=== PATIENT | male | born 1930 | race Caucasian/White ===

== ENCOUNTER 2016-08-08 09:22 | Inpatient (IN) | payer OTHER ==
[~2016-08-08] VITALS: Ht 167.6 cm; Wt 86.4 kg
[2016-08-08] VITALS (16 sets, daily range): BP systolic 68–172; BP diastolic 44–71
--- NOTE | 2016-08-08 10:35 | ED ORDER SUMMARY ---
..... Patient: JESSICA CHAPA OrderSheet [facility] VisitID: [id number] [place] [address] 85y, M Registration Date/Time: 08/08/2016 ORDER SHEET Weight: 77.1 kg (stated) Allergies: Clindamycin, Doxycycline, Oxycodone, Sulfa Antibiotics GENERAL ORDERS: Chest 1V Urgent (:08/08/2016 Henry Paris) (Ack 9:33 TBergley) (10:37 DMaziarka R.N.) Chronic Care Nurse (Continuous) (SOB) (:08/08/2016 Henry Paris) (Ack 9:33 TBergley) (9:36 DMaziarka R.N.) CBC w Diff Urgent (:08/08/2016 Henry Paris) (Ack 9:33 TBergley) (9:36 DMaziarka R.N.) CMP Urgent (:08/08/2016 Henry Paris) (Ack 9:33 TBergley) (9:36 DMaziarka R.N.) UA-Culture if indicated Urgent (:08/08/2016 Henry Paris) (Ack 9:33 TBergley) (11:23 DMaziarka R.N.) PT with INR Urgent (:08/08/2016 Henry Paris) (Ack 9:33 TBergley) (9:36 DMaziarka R.N.) Pulse oximeter (:08/08/2016 Henry Paris) (Ack 9:33 TBergley) (9:36 DMaziarka R.N.) Oxygen (2 L/min) (NC) (:08/08/2016 Henry Paris) (Ack 9:33 TBergley) (9:36 DMaziarka R.N.) Blood Culture (No) (N/A) Urgent (09:46 08/08/2016 Henry Paris) (Ack 9:49 TBergley) (9:51 DMaziarka R.N.) Lactate, Serum Urgent (09:46 08/08/2016 Henry Paris) (Ack 9:49 TBergley) (9:51 Daria R.N.) BNP Urgent (09:54 08/08/2016 Henry Paris) (Ack 10:01 TBergley) (10:37 DMabritney R.N.) Troponin-I Urgent (09:54 08/08/2016 Henry Paris) (Ack 10:01 TBergley) (10:37 DMabritney R.N.) MEDICATION ORDERS: DuoNeb Neb Tx 1 unit dose (NOW) (09:37 08/08/2016 Henry Paris) (9:51 Daria R.N.) IV FLUIDS: IV Saline Lock (09:32 08/08/2016 Henry Paris) (9:37 Daria R.N.) IV NS : initial bolus 500 mL (1000 mL/hr), then none - for X1 (NOW) (10:35 08/08/2016 Henry Paris) (10:38 DMabritney R.N.) Cefepime IV 2 gm/50mL (NOW) (10:51 08/08/2016 Henry Paris) (Ack 11:09 DMaziarksánchez R.N.) (11:23 Daria R.N.) Levaquin IV 750 mg/150 mL (NOW) (10:51 08/08/2016 Henry Paris) (11:06 DMaziarksánchez R.N.) ORDER SHEET NOTES: [Electronically signed by Jena Acevedo R.N. (15:46 08/08/2016)] [Electronically signed by Xavier Aranda Dr. (05:00 08/11/2016)] [Electronically locked/signed by Jena Acevedo R.N. (15:46 08/08/2016)]
--- NOTE | 2016-08-08 10:35 | ED NURSING NOTES ---
Clinical Report - Nurses [facility] [address] [place] [address] 08/08/2016 9:22 Patient: JESSICA CHAPA TRIAGE Triage time 09:25. Acuity: LEVEL 3. Chief Complaint: COUGH and "FLU" and (Recent Pneumonia on ABX continues SOB). ( 12 Liters per mask). --09:30 Jena Acevedo R.N. 09:25 08/08/16. BP: 127/48. HR: 54. RR: 40. O2 saturation: 94%. Temp: 99.1 F. --09:30 Jena Acevedo R.N. 09:37 08/08/16. HR: 104. O2 saturation: 90%. --09:38 Jena Acevedo R.N. Weight: 77.1 kg stated. Height/Length: 66 inches Per Patient. BMI: 27.4. --09:24 Jena Acevedo R.N. Medications Allopurinol Oral. --10:15 Jena Acevedo R.N. ALPRAZolam Oral. --10:15 Jena Acevedo R.N. Benzonatate Oral. --10:16 Jena Acevedo R.N. Cyclobenzaprine HCl Oral. --10:16 Jena Acevedo R.N. Montelukast Sodium Oral. --10:17 Jena Acevedo R.N. ProAir HFA Inhalation. --10:17 Jena Acevedo R.N. Spiriva HandiHaler Inhalation. --10:17 Jena Acevedo R.N. Telmisartan Oral. --10:17 Jena Acevedo R.N. Trospium Chloride Oral. --10:18 Jena Acevedo R.N. Verapamil HCl ER Oral. --10:18 Jena Acevedo R.N. Zolpidem Tartrate Oral. --10:18 Jena Acevedo R.N. Tramadol HCL Oral. --10:20 Jena Acevedo R.N. Micardis Oral. --10:21 Jena Acevedo R.N. NexIUM Oral. --10:22 Jena Acevedo R.N. Allergies Clindamycin. --10:18 Jena Acevedo R.N. Doxycycline. --10:18 Jena Acevedo R.N. Oxycodone. --10:19 Jena Acevedo R.N. Sulfa Antibiotics. --10:19 Jena Acevedo R.N. History Arrived by EMS. Onset. (about 3 weeks). SOCIAL HX: Occasional alcohol use. No drug use. --09:30 Jena Acevedo R.N. PROBLEMS: Myofascial Strain. Rib Fracture. Arthritis. Tetanus Status. Fall. Back Pain. Spinal Stenosis. Headache. Anemia. Immunizations. Tuberculosis. Emphysema. COPD - Chronic Obstructive Pulmonary Disease. Hypertension. Asthma. Allergic Reaction. --09:28 Jena Acevedo R.N. Hyponatremia. --10:24 Jena Acevedo R.N. ADDITIONAL SURGERIES: Appendectomy. Esophageal Dilatation. Knee Surgery. Stomach surgery. --09:28 Jena Acevedo R.N. PHYSICAL ASSESSMENT GENERAL / NEURO / PSYCH: Appears in distress. Decreased awareness. He has had weakness. RESPIRATORY: Moderate respiratory distress. The patient can speak a few words at a time. ( Rhonchi throught). --09:33 Jena Acevedo R.N. NURSING PROGRESS NOTES 09:34 08/08/16. End tidal CO2: 23mmHg. --09:35 Jena Acevedo R.N. Oxygen administered. Monitoring of patient in place. Patient gowned. Two patient identifiers checked. Call light placed in reach. Patient ready for evaluation- ED physician notified. --09:36 Jena Acevedo R.N. 09:37 08/08/2016 Site #1 started prior to arrival by EMS via IV in the left antecubital space with an 20g angiocath. --09:37 Jena Acevedo R.N. 09:41 08/08/2016 Duoneb (Ipratropium-Albuterol) Neb TX 1 unit dose given. Given by the respiratory therapist. Allergies verified and confirmed 5 rights. --09:51 Jena Acevedo R.N. EKG time: (943). EKG was ordered, performed by a tech and shown to the ED physician. --09:51 Shanel Barajas 10:26 08/08/16. BP: 117/72. HR: 120. RR: 38. O2 saturation: 92%. Pain level now 0/10. --10:27 Jena Acevedo R.N. The patient is resting quietly. RESPIRATORY: Respiratory distress present. --10:27 Jena Acevedo R.N. 10:38 08/08/2016 Started bag #1 1000 mL IV Fluids IV NS (Saline); at 1000 mL/hr over 30 minute(s) via site #1. Allergies verified and confirmed 5 rights. IV patency established. IV site checked: no pain, redness, or swelling. IV flushed thoroughly pre- and post-medication administration. --10:38 Jena Acevedo R.N. 11:03 08/08/2016 Started 750 mg of Levaquin (Levofloxacin) IVPB in bag #1 150 mL; at 100 mL/hr over 90 minute(s) via site #1 via IV pump. Allergies verified and confirmed 5 rights. IV patency established. IV site checked: no pain, redness, or swelling. IV flushed thoroughly pre- and post-medication administration. --11:06 Jena Acevedo R.N. 11:08 08/08/16. BP: 114/49. HR: 105. RR: 32. O2 saturation: 91%. Pain level now 0/10. --11:09 Jena Acevedo R.N. The patient is sleeping. Overall patient status is improved. RESPIRATORY: Respiratory distress present. Patient waiting for results and admit bed. --11:09 Jena Acevedo R.N. 11:22 08/08/2016 Site #2 started via IV in the right forearm with an 18g angiocath using 1% intra-dermal lidocaine, with aseptic technique and good blood return. Saline lock flushed with 10 mL saline. --11:22 Jena Acevedo R.N. 11:23 08/08/2016 Started 2 gm of Cefepime IVPB in bag #1 240 mL; at 480 mL/hr over 30 minute(s) via site #2 via IV pump. Allergies verified and confirmed 5 rights. IV patency established. IV site checked: no pain, redness, or swelling. IV flushed thoroughly pre- and post-medication administration. --11:23 Jena Acevedo R.N. DISPOSITION / DISCHARGE Condition at departure: improved and stable. Admitted to the Critical Care Unit (302). --11:39 Jnea Acevedo R.N. 11:38 08/08/16. BP: 114/51. HR: 110. RR: 40. O2 saturation: 93%. Pain level now 0/10. --11:39 Jena Acevedo R.N. Locked/Released at 08/08/2016 15:46 by Jena Acevedo R.N.
--- NOTE | 2016-08-08 10:35 | ED CLINICAL REPORT ---
Clinical Report - Physicians/Mid Levels [facility] [address] [place] [address] 08/08/2016 9:22 Patient: JESSICA CHAPA Arrived- By ambulance. Historian- patient and EMS personnel. HISTORY OF PRESENT ILLNESS Chief Complaint: COUGH, FEVER, CHILLS, MUSCLE ACHES and "FLU". This started past few weeks and is still present and worsening. It was abrupt in onset and has been constant but is not gone now. The illness is described as severe. The patient has had sputum production, a cough, difficulty breathing, fever and chills. He has had muscle aches. Additional history - No known contact with a sick individual. No recent travel. Similar symptoms previously: None. Recent medical care: The patient was seen recently in a clinic (told he had "the flu"). REVIEW OF SYSTEMS All systems otherwise negative, except as recorded above. PAST HISTORY See nurses notes. Medications: NexIUM Oral. Micardis Oral. Tramadol HCL Oral. Zolpidem Tartrate Oral. Verapamil HCl ER Oral. Trospium Chloride Oral. Telmisartan Oral. Spiriva HandiHaler Inhalation. ProAir HFA Inhalation. Montelukast Sodium Oral. Cyclobenzaprine HCl Oral. Benzonatate Oral. ALPRAZolam Oral. Allopurinol Oral. Allergies: Clindamycin. Doxycycline. Oxycodone. Sulfa Antibiotics. SOCIAL HISTORY Smoker- current status unknown. No alcohol use or drug use. No recent travel. Is a local resident. ADDITIONAL NOTES The nursing notes have been reviewed. PHYSICAL EXAM Vital Signs: 08/08/2016 09:37 HR: 104. O2 saturation: 90%. 08/08/2016 09:34 End tidal CO2: 23 mmHg. 08/08/2016 09:25 BP: 127/48. HR: 54. RR: 40. O2 saturation: 94%. Temp: 99.1 F. Blood pressure normal. Oxygen saturation normal. Appearance: Alert. No acute distress. Eyes: Pupils equal, round and reactive to light. Eyes normal inspection. ENT: Ears normal. Nose normal. Pharynx normal. Uvula midline. Neck: Normal inspection. Neck supple. No meningeal signs. CVS: Normal heart rate and rhythm. Heart sounds normal. Pulses normal. Respiratory: Moderate respiratory distress. Accessory muscle use. Moderate bilateral rhonchi present diffusely. Rales present. Abdomen: Soft and nontender. No organomegaly. Skin: Skin dry. Normal skin color. No rash. Normal skin turgor. Cool skin. Extremities: Extremities exhibit normal ROM. No lower extremity edema. Neuro: Oriented X 3. No alteration in mental status. No motor deficit. No sensory deficit. LABS, X-RAYS, AND EKG EKG: No acute ischemia. Narrow-complex tachycardia (108). Sinus tachycardia. First-degree atrioventricular block. Normal QRS complex. Normal axis. Normal ST and T waves, QT and QTc. The study has been interpreted contemporaneously. The study has been independently viewed by me. The EKG appears to be a good tracing. Chest X-ray: (bilateral infiltrates worse on the right than on the left. Consistent with pneumonia.). Views: PA. The X-rays were independently viewed by me and interpreted contemporaneously by me. Laboratory Tests: CBC w Diff: (GENESIS: 08/08/2016 09:44) ( MdgRcvd 08/08/2016 10:18) IP Test Result Flag Units (Reference) WHITE BLOOD COUNT 10.7 K/uL (4.5-11.5) RED BLOOD COUNT 4.18 L M/uL (4.50-5.90) HEMOGLOBIN 12.8 L gm/dL (13.5-17.5) HEMATOCRIT 39.4 L % (41.0-53.0) MEAN CELL VOLUME 94 fL (80-100) MEAN CORPUSCULAR HGB 31 pg (26-34) MEAN CORPUSCULAR HGB CONC 32 g/dL (31-37) RED CELL DISTRIBUTION WIDTH 15.5 H % (11.6-14.8) PLATELET COUNT 283 K/uL (150-400) PT with INR: (GENESIS: 08/08/2016 09:44) ( MsgRcvd 08/08/2016 10:12) Final results Test Result Flag Units (Reference) INR 0.9 (0.8-1.2) Low Intensity Therapy: INR 1.5-2.0 PT range 18.5-23.1Mod.Intensity Therapy: INR 2.0-3.0 PT range 23.1-31.5High Intensity Therapy: INR 2.5-3.5 PT range 27.4-35.5High Intensity Therapy 2: INR 3.0-4.0 PT range 31.5-39.3 BNP: (GENESIS: 08/08/2016 09:44) ( [facility] 08/08/2016 10:32) Final results Test Result Flag Units (Reference) B-TYPE NATRIURETIC PEPTIDE 360 H pg/ml (5-100) Lactate, Serum: (GENESIS: 08/08/2016 09:44) ( [facility] 08/08/2016 10:16) Final results Test Result Flag Units (Reference) LACTIC ACID 3.0 H mmol/L (0.4-2.0) CMP: (GENESIS: 08/08/2016 09:44) ( [facility] 08/08/2016 10:34) Final results Test Result Flag Units (Reference) GLUCOSE 130 H mg/dL (70-110) BUN 32 H mg/dL (7-18) CREATININE 1.7 H mg/dL (0.6-1.3) Estimated GFR 43.88 mL/min Estimated GFR- 53.18 mL/min Note: Persistent reduction over 3 months in eGFR<60 mL/min/1.73 m2 defines CKD. Patients with eGFR values>=60 mL/min/1.73 m2 may also have CKD if evidence ofpersistent proteinuria. Additional information may be foundat www.kidney.org. SODIUM 128 L mmol/L (136-145) POTASSIUM 4.8 mmol/L (3.5-5.1) CHLORIDE 93 L mmol/L (98-107) CARBON DIOXIDE 25 mmol/L (21-32) CALCIUM 8.7 mg/dL (8.5-10.1) TOTAL PROTEIN 6.6 g/dL (6.4-8.2) ALBUMIN 2.4 L g/dL (3.3-5.0) BILIRUBIN, TOTAL 0.9 mg/dL (0.0-1.0) ALKALINE PHOSPHATASE 83 U/L (46-116) AST (SGOT) 21 U/L (15-37) ALT (SGPT) 23 U/L (12-78) TROPONIN I <0.05 L ng/mL (0.00-1.5) TROPONIN REFERENCE RANGE:<0.1 NEGATIVE0.1-1.5 INDETERMINANT>1.5 POSITIVE . Pulse Oximetry: 08/08/2016 09:25 O2 saturation: 94%. (FIO2-6 liter/min nasal cannula). Interpretation: hypoxemia. PROGRESS AND PROCEDURES Course of Care: The patient is a pleasant 85-year-old male presenting for evaluation of respiratory distress. The patientis in bed and in a mild amount of distress. Lung sounds are remarkable for coarse rhonchi heard throughout. Particularly worse on the right compared to the left. Differential diagnoses at this time includescongestive heart failure exacerbationor pneumonia. Because of the patient's recent symptoms, pneumonia is more likely. Patient will be evaluated with chest x-ray as well as EKG and laboratory studies. Breathing treatment will also be provided for the patient's rhonchi for possible reactive airway type of etiology. Patient is agreeable to the treatment plan. We'll monitor closely. Patient improved significantly with medications here in the emergency department. Chest x-rays are unremarkable for consolidation is noted on the right side. Because of the extensive lung involvement as well as patient's initial presentation, feel more comfortable the patient went to the intensive care unit. Some laboratory studies are still pending at this time, patient will be monitored. Do not feel further intervention at this time is required. And the buttocks have been ordered as well as blood cultures. Lactate is noted to be elevated at 3.0. Had discussion with the patient as well as the hospitalist. Patient is to be admitted to the intensive care unit. no further recommendations made. The rest of the patient's laboratory studies are otherwise unremarkable. Patient has significant improvement while here in the emergency department. Patient is not resting in bed and in no acute distress. Respirations are nonlabored. Patient appears to be much more calm. Of note, this patient's note is being completed after the patient is been dispositioned from the emergency department. After the patient was sent to the intensive care unit, it was felt of the patient's condition is significant worsened. Concern for patient's area was brought up by the intensive care unit doctor. They called to the emergency department for further assistance with the patient's airway. I had arrived on the patient seen and noted that the patient was in severe distress. Patient is diaphoretic and. Heart is also elevated to the 150s. Blood pressure had remained normal throughout his stay here in the emergency department as well as in the intensive care unit. Because of the patient's severe respiratory distress, but felt that endotracheal intubation was indicated. The patient was intubated in intensive care unit. Please see procedure note for further details. This again was not performed in the emergency department and only performed in the intensive care. Please see progress note dated August 11 at 4:48 AM. Patient was intubated no Complications. Critical care performed (40 minutes). Time is exclusive of separately billable procedures. Time includes: direct patient care, patient reassessment, coordination of patient care, interpretation of data (laboratory data, pulse oximetry and arterial blood gases), review of patient's medical records, medical consultation, family consultation regarding treatment decisions and documentation of patient care. (Electronically signed by Xavier Aranda Dr. 08/11/2016 5:00)
--- NOTE | 2016-08-08 10:35 | ED ORDER SUMMARY ---
..... Patient: JESSICA CHAPA OrderSheet [facility] VisitID: [id number] [place] [address] 85y, M Registration Date/Time: 08/08/2016 ORDER SHEET Weight: 77.1 kg (stated) Allergies: Clindamycin, Doxycycline, Oxycodone, Sulfa Antibiotics GENERAL ORDERS: Chest 1V Urgent (:08/08/2016 Henry Paris) (Ack 9:33 TBergley) (10:37 DMaziarka R.N.) Bronc Breaker (Continuous) (SOB) (:08/08/2016 Henry Paris) (Ack 9:33 TBergley) (9:36 DMaziarka R.N.) CBC w Diff Urgent (:08/08/2016 Henry Paris) (Ack 9:33 TBergley) (9:36 DMaziarka R.N.) CMP Urgent (:08/08/2016 Henry Paris) (Ack 9:33 TBergley) (9:36 DMaziarka R.N.) UA-Culture if indicated Urgent (:08/08/2016 Henry Paris) (Ack 9:33 TBergley) (11:23 DMaziarka R.N.) PT with INR Urgent (:08/08/2016 Henry Paris) (Ack 9:33 TBergley) (9:36 DMaziarka R.N.) Pulse oximeter (:08/08/2016 Henry Paris) (Ack 9:33 TBergley) (9:36 DMaziarka R.N.) Oxygen (2 L/min) (NC) (:08/08/2016 Henry Paris) (Ack 9:33 TBergley) (9:36 DMaziarka R.N.) Blood Culture (No) (N/A) Urgent (09:46 08/08/2016 Henry Paris) (Ack 9:49 TBergley) (9:51 DMaziarka R.N.) Lactate, Serum Urgent (09:46 08/08/2016 Henry Paris) (Ack 9:49 TBergley) (9:51 Daria R.N.) BNP Urgent (09:54 08/08/2016 eHnry Paris) (Ack 10:01 TBergley) (10:37 DMabritney R.N.) Troponin-I Urgent (09:54 08/08/2016 Henry Paris) (Ack 10:01 TBergley) (10:37 DMabritney R.N.) MEDICATION ORDERS: DuoNeb Neb Tx 1 unit dose (NOW) (09:37 08/08/2016 Henry Paris) (9:51 Daria R.N.) IV FLUIDS: IV Saline Lock (09:32 08/08/2016 Henry Paris) (9:37 Daria R.N.) IV NS : initial bolus 500 mL (1000 mL/hr), then none - for X1 (NOW) (10:35 08/08/2016 Henry Paris) (10:38 DMabritney R.N.) Cefepime IV 2 gm/50mL (NOW) (10:51 08/08/2016 Henry Paris) (Ack 11:09 DMaziarksánchez R.N.) (11:23 Daria R.N.) Levaquin IV 750 mg/150 mL (NOW) (10:51 08/08/2016 Henry Paris) (11:06 DMaziarksánchez R.N.) ORDER SHEET NOTES: [Electronically signed by Jena Acevedo R.N. (15:46 08/08/2016)] [Electronically signed by Xavier Aranda Dr. (05:00 08/11/2016)] [Electronically locked/signed by Jena Acevedo R.N. (15:46 08/08/2016)]
--- NOTE | 2016-08-08 11:27 | DIAGNOSTIC IMAGING REPORT ---
PROCEDURE: XR CHEST 1 VIEW INDICATION: SOB AND COUGH TECHNIQUE: Single view chest. 1042 hours COMPARISON: 08/02/2016 from [facility] FINDINGS: Enlarged heart and ectatic thoracic aorta. No central venous congestion. Bilateral patchy alveolar opacities involving right upper lobe, bilateral patchy alveolar opacities and hazy opacity involving left lower lobe and right lung. Probably small left pleural effusion. No pneumothorax. Degeneration in both shoulders. Compression fracture visible in the lower lumbar spine. IMPRESSION: 1. Interval development of extensive bilateral alveolar opacities suggestive of infectious/inflammatory process. 2. Stable cardiomegaly. 3. Lower thoracic compression fractures.
--- NOTE | 2016-08-08 11:27 | DIAGNOSTIC IMAGING REPORT ---
PROCEDURE: XR CHEST 1 VIEW INDICATION: SOB AND COUGH TECHNIQUE: Single view chest. 1042 hours COMPARISON: 08/02/2016 from [facility] FINDINGS: Enlarged heart and ectatic thoracic aorta. No central venous congestion. Bilateral patchy alveolar opacities involving right upper lobe, bilateral patchy alveolar opacities and hazy opacity involving left lower lobe and right lung. Probably small left pleural effusion. No pneumothorax. Degeneration in both shoulders. Compression fracture visible in the lower lumbar spine. IMPRESSION: 1. Interval development of extensive bilateral alveolar opacities suggestive of infectious/inflammatory process. 2. Stable cardiomegaly. 3. Lower thoracic compression fractures.
--- NOTE | 2016-08-08 17:49 | DIAGNOSTIC IMAGING REPORT ---
PROCEDURE: XR CHEST 1 VIEW INDICATION: INTUBATION TECHNIQUE: Single view chest. 1608 hours. COMPARISON: 1042 hours FINDINGS: Endotracheal tube is in good position about 2.5 cm from the gelacio. Nasogastric tube is in place with the tip off the inferior portion of the film. Defibrillator pads overlying the central chest. Moderate cardiomegaly and aortic contour are stable. Alveolar opacities throughout the right lung, particularly right upper lobe, and in left lower lobe are fairly similar. No pneumothorax. Probable small left effusion. Stable osseous structures. IMPRESSION: 1. Adequate position of endotracheal and nasogastric tube. 2. Extensive bilateral alveolar opacities and small left effusion without change. 3. Mild cardiomegaly.
[2016-08-09] VITALS (28 sets, daily range): BP systolic 80–112; BP diastolic 42–72
--- NOTE | 2016-08-09 03:09 | HISTORY AND PHYSICAL ---
ADMITTED: 08/08/2016 CHIEF COMPLAINT: 1. Cough 2. Shortness breath 3. Chest congestion HISTORY OF PRESENT ILLNESS: The patient is an 85-year-old white male, well known to me, who presented to my office on 08/07/2015 for problems with hyponatremia and swallowing difficulties and a history of drinking mostly fluids for a week or more. He had had some general malaise and had been seen about a week earlier at the [facility] walk-in clinic at [facility]. He had had a chest x-ray done which was normal and did not really have any other findings, except the somewhat low sodium level. He did not really have major respiratory difficulties at the time. He had an oxygen saturation in the low 90s on room air. Over the weekend, he seemed to suddenly develop progressive respiratory difficulties. This morning his found him very congested and having difficulty talking and difficulty getting up and moving due to severe shortness of breath. She could not begin to transport him to the hospital and called 911. He was found to have bilateral infiltrates on chest x-ray and quite significantly low oxygen levels that were difficult to maintain except with a nonrebreather mask. He was started on cefepime and may have been given levofloxacin, though this is not clear. He was transferred to the intensive care unit for further care. MEDICAL/SURGICAL HISTORY: Past medical history is remarkable for longstanding hypertension, COPD, osteoarthritis, lumbar disk disease and both thoracic and lumbar spinal compression fractures from remote injuries. He has also had problems with prostate hypertrophy and surgery for this, and subsequently has developed urinary incontinence. He has had significant problems with gastroesophageal reflux and has had surgery for this. He also has underlying anxiety issues. He has had problems with actinic skin changes on his face with multiple basal cell carcinomas. Past surgical history is remarkable for multiple basal cell carcinoma removals from the head and neck area. He has had an appendectomy for a ruptured appendix with delayed appendectomy. He has had prostate gland surgery with a TUR and has also had removal of a right scrotal hydrocele at the same time. Other surgeries include laparoscopic left knee meniscectomy, sinus surgery, remote hemorrhoidectomy, laparoscopic Pedro fundoplication done in 2010, and esophageal dilation procedures done x2 in 2011. MEDICATIONS: Current medications include: 1. Trospium 20 mg strength 1 tablet once or twice daily to help control urine flow. 2. Tramadol -50 mg------ on rare occasions for headache pain. 3. Oxycodone 5 mg/5 mL liquid type 2.5 to 5 mL every 4-6 hours for extreme pain. 4. Zolpidem 10 mg strength 1/4 to 1/2 tablet at bedtime for help with sleeping. 5. Alprazolam 0.25 mg 1/2 to 1 tablet once or twice daily for anxiety issues. 6. Micardis (telmisartan) 80 mg strength 1 daily for blood pressure. 7. Extended release Verapamil 180 mg 1 daily for blood pressure and heart rhythm control. 8. Allopurinol 300 mg strength 1/2 tablet daily to prevent gout. 9. Nexium 20-40 mg daily for stomach acid reflux. 10. Spiriva 1 capsule once daily. 11. ProAir inhaler 2 puffs every 3-4 hours as needed for chest congestion and wheezing. 12. Vitamin D3 at 2000 units daily. 13. Vitamin B6. 14. Vitamin B12 daily. ALLERGIES: INCLUDE: 1. CLINDAMYCIN. 2. DOXYCYCLINE. 3. HYDROCODONE. 4. SULFA. 5. CELEBREX. 6. OMEPRAZOLE. SOCIAL HISTORY: Indicates the patient is . 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 He has a 60+ pack year smoking history. He stopped about 15 or 16 years ago around 1999 or 2000. He occasionally drinks small amounts of alcohol. FAMILY HISTORY: Not currently available. REVIEW OF SYSTEMS: HEENT has been okay. Respiratory: As noted above with sudden increase in bleeding difficulties today. Cardiovascular has been okay with no rapid heart rates or recent chest pain. Gastrointestinal: Remarkable for recent difficulties with swallowing and a feeling that foods and liquids will not go down very well. I had suspected that he may be developing an esophageal stricture once more and had recommended scheduling for an upper GI barium swallow. This has not been done yet. Musculoskeletal: Remarkable for chronic back pain issues, both in the thoracic and lumbar spine areas. He also has quite significant arthralgias in his hands, knees, and neck. Neurological: Remarkable for some mild difficulties with memory. Psychiatric: Remarkable for anxiety issues. Skin: Remarkable for multiple actinic areas on his face, scalp, and head area. PHYSICAL EXAMINATION: GENERAL: Reveals the patient to be on a nonrebreather mask and quite tachypneic and dyspneic. He is having difficulty speaking due to his difficulties. VITAL SIGNS: On arrival in the ICU, temperature is 102.4 degrees. Pulse is in the 130-150 range. Respiratory rate is about 30. Blood pressure is 150/70. Oxygen saturation is 84% to 90% nonrebreather mask at 15 L/min of oxygen flow. HEENT: Head is normal. Ear canals and tympanic membranes are normal. Eyes show conjugate gaze with clear conjunctivae and sclerae. Nose and throat are clear. Mouth is showing somewhat dry mucosa. NECK: Shows decreased range of motion with no adenopathy. CHEST: Reveals bilateral coarse inspiratory and expiratory rhonchi and rales. There is no pronounced severe wheezing. There is slight wheezing. CARDIAC: Heart sounds are difficult to hear clearly. S1 and S2 are normal. There is no obvious murmur or S3. ABDOMEN: Slightly distended. There is no organomegaly or mass. Bowel tones are normal. GENITALIA: Show a circumcised male. Testes are somewhat atrophic and descended. RECTAL: Exam is not done. EXTREMITIES: Show trace edema. Dorsalis pedis pulses +1 are noted, left and right. SKIN: Shows actinic changes on the facial area. LAB/IMAGING: Chest x-ray shows patchy infiltrates in the right upper lobe area and left lower lobe area with a slight effusion on the left. There does not seem to be pulmonary vascular congestion. Heart size is mildly enlarged. EKG shows a sinus tachycardia. There are no acute major EKG changes. Laboratory tests show a white blood cell count to be 10,700 with hemoglobin 12.8 , hematocrit 39.4. Pro time/INR is 0.9. Lactic acid elevated at 3.0. Sodium 128, potassium 4.8, chloride 93, CO2 32, glucose 130, creatinine 1.7, BUN 32. Troponin I is less than 0.05. SGOT is 21, SGPT is 23. BNP is 360. Arterial blood gas done shortly after arrival in the ICU shows a pH 7.41, pO2 of 59, and pCO2 of 37.6. IMPRESSION: 1. The patient is presenting with bilateral pneumonia, which has been rather rapidly developing and causing severe respiratory compromise. He has underlying chronic obstructive pulmonary disease and has a history of hypertension as well. 2. Other problems include probable esophageal stricture causing difficulty in swallowing. 3. He also has multiple spinal compression fractures and degenerative disk changes. 4. He also has osteoarthritis. 5. Problems with urinary incontinence with a history of prior prostate gland surgery. 6. Hyponatremia, possibly related to selective diet of increased fluids, especially water, due to inability to eat solid foods easily. The patient has not been on any diuretics. PLAN: The patient is admitted to the intensive care unit and has been started on cefepime, which will be continued at 2 grams every 12 hours. It is not clear whether he received levofloxacin in the emergency department. If not, this will be started at 750 mg daily with doses of both antibiotics to be reviewed by the pharmacy department in the morning. He will need to be watched carefully for deterioration of his breathing. If his pneumonia worsens, he may need to be intubated. He will be started empirically on Solu-Medrol starting with 125 mg IV every 6 hours as some literature suggests that this may be helpful even in the setting of acute pneumonias. CODE STATUS WAS DISCUSSED, AND HE DID FEEL HE WOULD WANT TO BE INTUBATED AND RESUSCITATED IF HE WAS HAVING AN ACUTE PNEUMONIA THAT WOULD LIKELY IMPROVE WITH TREATMENT. THIS WILL BE THE INITIAL PLAN. He will be maintained on IV fluids. He will have electrolytes followed. The patient's situation has been discussed with his , who agrees with present plans.
--- NOTE | 2016-08-09 06:20 | DIAGNOSTIC IMAGING REPORT ---
PROCEDURE: XR CHEST 1 VIEW INDICATION: Pneumonia, on vent. TECHNIQUE: Portable AP view 02:45 a.m. COMPARISON: Chest x-ray 08/08/2016 FINDINGS: Stable ET and NG tubes in satisfactory position. No appreciable change in the right upper lobe and left basilar alveolar infiltrates with small left pleural effusion. Stable moderate cardiomegaly. Pulmonary vascularity within normal limits. No suspicious osseous lesions. IMPRESSION: 1. Stable chest 2. Stable ET and NG tubes 3. Extensive bilateral pneumonia with small left pleural effusion 4. Cardiomegaly
[2016-08-09] MEDS ORDERED: ALLOPURINOL300 MG PO (14:16)
[2016-08-09] MEDS ORDERED: ALPRAZOLAM0.25 MG PO (14:17)
[2016-08-09] MEDS ORDERED: CLOBETASOL PRO (14:19)
[2016-08-09] MEDS ORDERED: CYCLOBENZAPRINE5 MG PO (14:20)
[2016-08-09] MEDS ORDERED: DEPO-MEDROL20 MG/ML SC (14:21)
[2016-08-09] MEDS ORDERED: EPIPEN 2-PAK0.3 MG (14:21)
[2016-08-09] MEDS ORDERED: DICLOFENAC SODI75 MG PO (14:21)
[2016-08-09] MEDS ORDERED: FLONASE AL50 MCG/ACT (14:22)
[2016-08-09] MEDS ORDERED: COUGH SYRU100 MG/5 M (14:23)
[2016-08-09] MEDS ORDERED: IBUPROFEN400 MG PO (14:24)
[2016-08-09] MEDS ORDERED: HYDROXYZINE HCL25 MG PO (14:24)
[2016-08-09] MEDS ORDERED: LIDODERM5 % TOP (14:24)
[2016-08-09] MEDS ORDERED: MONTELUKAST SOD10 MG PO (14:25)
[2016-08-09] MEDS ORDERED: LINZESS145 MCG PO (14:25)
[2016-08-09] MEDS ORDERED: OXYCODONE H5 MG/5 ML PO (14:27)
[2016-08-09] MEDS ORDERED: SPIRIVA18 MCG INH (14:32)
[2016-08-09] MEDS ORDERED: PROAIR HFA IN (14:32)
[2016-08-09] MEDS ORDERED: SYMBICORT1 AE1 IN (14:45)
[2016-08-09] MEDS ORDERED: MICARDIS80 MG PO (14:46)
[2016-08-09] MEDS ORDERED: TRAMADOL HCL50 MG PO (14:46)
[2016-08-09] MEDS ORDERED: TRIAMCINOLONE A0.11 TOP (14:47)
[2016-08-09] MEDS ORDERED: AMBIEN5 MG PO (14:48)
[2016-08-09] MEDS ORDERED: CALAN80 MG PO (14:48)
[2016-08-09] MEDS ORDERED: TROSPIUM CHLORI20 MG PO (14:48)
[2016-08-10] VITALS (24 sets, daily range): BP systolic 82–119; BP diastolic 50–96
--- NOTE | 2016-08-10 07:22 | DIAGNOSTIC IMAGING REPORT ---
PROCEDURE: XR CHEST 1 VIEW INDICATION: Intubation. Follow up pneumonia. TECHNIQUE: Portable AP view (0605 hours). COMPARISON: Compared to chest x-rays on 08/09/2016, 08/08/2016. FINDINGS: ET tube in satisfactory position. NG tube in position. Moderate worsening in severe left lower lung pneumonia. No change in moderate right mid lung pneumonia. Moderate to marked cardiomegaly. Mediastinum is normal. Thorax is unchanged. IMPRESSION: 1. Moderate worsening in severe left lower lung pneumonia. 2. No change in moderate right mid lung pneumonia. 3. Moderate to marked cardiomegaly.
[2016-08-11] VITALS (24 sets, daily range): BP systolic 100–129; BP diastolic 46–82
--- NOTE | 2016-08-11 05:01 | ED MED RECONCILIATION SUMMARY ---
Patient: JESSICA CHAPA Medication Reconciliation Report [facility] VisitID: [id number] [address] [place] [address] 85y, M Registration Date/Time: 08/08/2016 Weight: 77.1 kg Height/Length: 66 in. BMI: 27.4 ALLERGIES: Clindamycin, Doxycycline, Oxycodone, Sulfa Antibiotics The patient's Home Medications are listed below: THE FOLLOWING MEDICATIONS NEED TO BE RECONCILED: Allopurinol Oral ALPRAZolam Oral Benzonatate Oral Cyclobenzaprine HCl Oral Micardis Oral Montelukast Sodium Oral NexIUM Oral ProAir HFA Inhalation Spiriva HandiHaler Inhalation Telmisartan Oral Tramadol HCL Oral Trospium Chloride Oral Verapamil HCl ER Oral Zolpidem Tartrate Oral The source(s) of the original Home Medication information: Not obtained. The following Medications were given to the patient in the Emergency Department: Duoneb [Neb Tx] Neb TX 1 unit dose, administered: 08/08/2016 9:41:00 AM IV NS IV Fluids bolus 0, then 1000 mL/hr, administered: 08/08/2016 10:38:00 AM Levaquin [IVPB] IVPB bolus 0, then 750 mg 100 mL/hr, administered: 08/08/2016 11:03:00 AM Cefepime [IVPB] IVPB bolus 0, then 2 gm 480 mL/hr, administered: 08/08/2016 11:23:00 AM The following Medications were prescribed to the patient: None.
--- NOTE | 2016-08-11 05:01 | ED MAR SUMMARY ---
..... Medication Administration Record [facility] [address] [place] [address] Patient: JESSICA CHAPA Visit ID: [id number] 85y, M Weight: 77.1 kg Height/Length: 66 in BMI: 27.4 ALLERGIES: Sulfa Antibiotics, Oxycodone, Doxycycline, Clindamycin Given 09:41 08/08/2016 Jena Acevedo R.N. Medication Administered: DUONEB [NEB TX] (IPRATROPIUM-ALBUTEROL), Dose: 1 unit dose Neb TX. Medication Ordered: DuoNeb Neb Tx 1 unit dose (NOW). Start 10:38 08/08/2016 Jena Acevedo R.N. Medication Administered: IV NS (SALINE), Dose: IV Fluids over 30 minute(s), Rate: 1000 mL/hr, Dispensed: 1000 mL bag, Site: #1 left AC. Medication Ordered: IV NS : initial bolus 500 mL (1000 mL/hr), then none - for X1 (NOW). Start 11:03 08/08/2016 Jena Acevedo R.N. Medication Administered: LEVAQUIN [IVPB] (LEVOFLOXACIN), Dose: 750 mg IVPB over 90 minute(s), Rate: 100 mL/hr, Dispensed: 150 mL bag, Site: #1 left AC. Medication Ordered: Levaquin IV 750 mg/150 mL (NOW). Start 11:23 08/08/2016 Jena Acevedo R.N. Medication Administered: CEFEPIME [IVPB], Dose: 2 gm IVPB over 30 minute(s), Rate: 480 mL/hr, Dispensed: 240 mL bag, Site: #2 right forearm. Medication Ordered: Cefepime IV 2 gm/50mL (NOW).
--- NOTE | 2016-08-11 05:01 | ED MAR SUMMARY ---
..... Medication Administration Record [facility] [address] [place] [address] Patient: JESSICA CHAPA Visit ID: [id number] 85y, M Weight: 77.1 kg Height/Length: 66 in BMI: 27.4 ALLERGIES: Sulfa Antibiotics, Oxycodone, Doxycycline, Clindamycin Given 09:41 08/08/2016 Jena Acevedo R.N. Medication Administered: DUONEB [NEB TX] (IPRATROPIUM-ALBUTEROL), Dose: 1 unit dose Neb TX. Medication Ordered: DuoNeb Neb Tx 1 unit dose (NOW). Start 10:38 08/08/2016 Jena Acevedo R.N. Medication Administered: IV NS (SALINE), Dose: IV Fluids over 30 minute(s), Rate: 1000 mL/hr, Dispensed: 1000 mL bag, Site: #1 left AC. Medication Ordered: IV NS : initial bolus 500 mL (1000 mL/hr), then none - for X1 (NOW). Start 11:03 08/08/2016 Jena Acevedo R.N. Medication Administered: LEVAQUIN [IVPB] (LEVOFLOXACIN), Dose: 750 mg IVPB over 90 minute(s), Rate: 100 mL/hr, Dispensed: 150 mL bag, Site: #1 left AC. Medication Ordered: Levaquin IV 750 mg/150 mL (NOW). Start 11:23 08/08/2016 Jena Acevedo R.N. Medication Administered: CEFEPIME [IVPB], Dose: 2 gm IVPB over 30 minute(s), Rate: 480 mL/hr, Dispensed: 240 mL bag, Site: #2 right forearm. Medication Ordered: Cefepime IV 2 gm/50mL (NOW).
--- NOTE | 2016-08-11 05:01 | ED MED RECONCILIATION SUMMARY ---
Patient: JESSICA CHAPA Medication Reconciliation Report [facility] VisitID: [id number] [address] [place] [address] 85y, M Registration Date/Time: 08/08/2016 Weight: 77.1 kg Height/Length: 66 in. BMI: 27.4 ALLERGIES: Clindamycin, Doxycycline, Oxycodone, Sulfa Antibiotics The patient's Home Medications are listed below: THE FOLLOWING MEDICATIONS NEED TO BE RECONCILED: Allopurinol Oral ALPRAZolam Oral Benzonatate Oral Cyclobenzaprine HCl Oral Micardis Oral Montelukast Sodium Oral NexIUM Oral ProAir HFA Inhalation Spiriva HandiHaler Inhalation Telmisartan Oral Tramadol HCL Oral Trospium Chloride Oral Verapamil HCl ER Oral Zolpidem Tartrate Oral The source(s) of the original Home Medication information: Not obtained. The following Medications were given to the patient in the Emergency Department: Duoneb [Neb Tx] Neb TX 1 unit dose, administered: 08/08/2016 9:41:00 AM IV NS IV Fluids bolus 0, then 1000 mL/hr, administered: 08/08/2016 10:38:00 AM Levaquin [IVPB] IVPB bolus 0, then 750 mg 100 mL/hr, administered: 08/08/2016 11:03:00 AM Cefepime [IVPB] IVPB bolus 0, then 2 gm 480 mL/hr, administered: 08/08/2016 11:23:00 AM The following Medications were prescribed to the patient: None.
--- NOTE | 2016-08-11 07:54 | DIAGNOSTIC IMAGING REPORT ---
PROCEDURE: XR CHEST 1 VIEW INDICATION: on vent recheck pneumonia TECHNIQUE: Portable AP view 05:36 a.m. COMPARISON: Chest x-ray 08/10/2016 FINDINGS: ET and NG tubes remain in good position. Mild progression of the right upper lobe and the left basilar extensive pneumonia. Small left pleural effusion. Stable moderate cardiomegaly. No suspicious osseous lesions. IMPRESSION: 1. Mild progression of right upper lobe and left basilar extensive pneumonia 2. ET and NG tubes in satisfactory position 3. Stable cardiomegaly
--- NOTE | 2016-08-11 13:43 | DIAGNOSTIC IMAGING REPORT ---
PROCEDURE: XR CHEST 1 VIEW INDICATION: PICC LINE PLACEMENT TECHNIQUE: Portable AP view 01:24 p.m. COMPARISON: Chest x-ray 08/11/2016 at 05:36 a.m. FINDINGS: Interval placement of a left PICC line with the tip in the SVC. ET and NG tubes remain in satisfactory position. No appreciable change in the extensive right upper lobe and left basilar infiltrate with small left pleural effusion. Moderate cardiomegaly. Bony thorax is unremarkable. IMPRESSION: 1. Left PICC line in satisfactory position 2. ET and NG tubes in satisfactory position 3. Stable extensive bilateral pneumonias 4. Results called to respiratory
[2016-08-12] VITALS (23 sets, daily range): BP systolic 115–142; BP diastolic 51–70
--- NOTE | 2016-08-12 07:10 | DIAGNOSTIC IMAGING REPORT ---
PROCEDURE: XR CHEST 1 VIEW INDICATION: recheck pneumonia and ET tuber--on vent TECHNIQUE: Portable AP view 06:14 a.m. COMPARISON: Chest x-ray 08/11/2016 FINDINGS: Left subclavian PICC line, ET tube and NG tube in stable position. Mild improvement of the right upper lobe and left basilar infiltrates. New small right basilar infiltrate. Stable small left pleural effusion. Stable moderate cardiomegaly. No suspicious osseous lesions. IMPRESSION: 1. Left PICC line, ET and NG tubes in stable satisfactory position 2. Mildly improved right upper lobe and left basilar pneumonia but new small right basilar infiltrate
[2016-08-13] VITALS (26 sets, daily range): BP systolic 120–176; BP diastolic 47–86
--- NOTE | 2016-08-13 05:39 | DIAGNOSTIC IMAGING REPORT ---
PROCEDURE: XR CHEST 1 VIEW INDICATION: ventilator Tx, recheck pneumonia TECHNIQUE: Portable AP view 05:16 a.m. COMPARISON: Chest x-ray 08/12/2016. FINDINGS: Left PICC line, ET tube and NG tubes remain in satisfactory position. Continued improvement of the diffuse right upper lobe and right basilar infiltrates. No change in the extensive left lung infiltrate and small pleural effusion. Stable moderate cardiomegaly. Thorax is normal. IMPRESSION: 1. Stable left PICC line, ET and NG tubes prior 2. Improved right upper lobe and right basilar infiltrates 3. No change in extensive left lung infiltrate and small left pleural effusion.
[2016-08-14] VITALS (19 sets, daily range): BP systolic 132–174; BP diastolic 61–87
[2016-08-15] VITALS (22 sets, daily range): BP systolic 124–168; BP diastolic 56–85
--- NOTE | 2016-08-15 10:51 | DIAGNOSTIC IMAGING REPORT ---
PROCEDURE: XR CHEST 1 VIEW INDICATION: Follow up pneumonia. TECHNIQUE: Portable AP view (0600 hours). COMPARISON: Compared to chest x-ray on 08/13/2016 and . FINDINGS: ET tube has been removed. Left PIC line and NG tubes are in position. Allowing for underexposure, there is mild worsening in pulmonary vascular congestion and moderate to marked cardiomegaly superimposed on moderate to severe bilateral pneumonia (left greater than right). The rest of the chest is unchanged. IMPRESSION: 1. Interval removal of ET tube. 2. Mild worsening in cardiomegaly and pulmonary vascular congestion suggests increased fluid status or occult congestive heart failure. 3. No change in moderate to severe bilateral pneumonia (left greater right). 4. Findings discussed with Dr. Serra.
[2016-08-16] VITALS (23 sets, daily range): BP systolic 109–182; BP diastolic 45–71
--- NOTE | 2016-08-16 07:35 | DIAGNOSTIC IMAGING REPORT ---
PROCEDURE: XR CHEST 1 VIEW INDICATION: recheck pneumonia. TECHNIQUE: Single view chest. 06:07 hours COMPARISON: 08/15/2016 FINDINGS: Left-sided PICC line and nasogastric tube remain in stable position. Moderate cardiomegaly, stable. No change to the mediastinal contour. No significant central venous congestion. Stable right upper lobe alveolar opacity. Slight clearing of moderate right lower lobe opacity. Interval development of large left-sided pneumothorax. No shift of the mediastinal structures. Intact osseous structures. IMPRESSION: 1. Interval development of large left pneumothorax. 2. Very slight interval improvement in right lower lung pneumonia. 3. Stable right upper lobe pneumonia. 4. Stable tubes and lines. 5. Discussed with Dr. Serra at 07:33 hours.
--- NOTE | 2016-08-16 11:08 | DIAGNOSTIC IMAGING REPORT ---
PROCEDURE: XR CHEST 1 VIEW INDICATION: recheck pneumothorax. TECHNIQUE: Portable AP view 09:59 a.m. COMPARISON: Chest x-ray 08/16/2016 06:03 a.m. FINDINGS: Stable left PICC line and NG tube. No change in the large left pneumothorax. Stable right upper and lower lobe pneumonia. Stable moderate cardiomegaly. Mediastinum is unremarkable. Thorax is normal. IMPRESSION: 1. Stable large left pneumothorax 2. Stable right upper and lower lobe pneumonia 3. Stable NG tube and left PICC line 4. Results discussed with Dr. Serra and Dr. Worrell
--- NOTE | 2016-08-16 11:18 | Operative Report ---
Operative Report Date of Surgery: 08/16/16 Preoperate Diagnosis: left pneumothorax Postoperative Diagnosis: left pneumothorax Surgeon: En Worrell MD [employer] Manager Surgeon: none Procedure Performed: Left chest tube thoracostomy Anesthesia: Morphine 1 mg IV. Versed 2 mg IV. Local 1% Xylocaine 5 cc Indications: 85-year-old male history of pneumonia taken off the ventilator on 08/16/16. This morning's chest x-ray revealed left pneumothorax that progressed on a second chest x-ray. Surgical Technique: With the patient at 45 angle in bed his left upper chest was prepped using ChloraPrep. A site was selected approximately second intercostal space midclavicular line. This site was infiltrated using local anesthetic. A small transverse incision made. Using gentle blunt dissection we were able to enter the left pleura. A 26 Thai chest tube was inserted through this site and directed apically. The chest tube was secured using 2-0 nylon. Sterile occlusive dressing was applied. The chest tube was attached to Pleur-evac and attached to 20 cm wall suction. Patient tolerated procedure well. Portable chest x-ray pending.
--- NOTE | 2016-08-16 12:03 | DIAGNOSTIC IMAGING REPORT ---
PROCEDURE: XR CHEST 1 VIEW INDICATION: CHEST TUBE PLACED TECHNIQUE: Portable AP view 11:12 a.m. COMPARISON: Chest x-ray 08/16/2016 and 12/1958. FINDINGS: Interval placement of a large bore left chest tube projecting over the upper lung zone with tiny residual left apical pneumothorax. Stable extensive bilateral pneumonia. Moderate cardiomegaly. Left PICC line and NG tube remain in satisfactory position. Thorax is normal. IMPRESSION: 1. Interval placement of left chest tube with tiny residual left pneumothorax 2. Otherwise stable chest 3. Results discussed with Dr. Worrell
[2016-08-17] VITALS (24 sets, daily range): BP systolic 93–153; BP diastolic 36–60
--- NOTE | 2016-08-17 03:15 | Progress Note ---
Subjective General Note Date: August 17, 2016 Admission Date: August 08, 2016 Hospital Day: 10 PCP: Moses Serra M.D. Status: Inpatient Advanced Directive: FULL CODE Room: 302 Brief History: The patient is a 85-year-old white male with a significant past medical history of hypertension, COPD, osteoarthritis, lumbar disc disease, lumbar/thoracic compression fractures, BPH, gastroesophageal reflux, gout, generalized anxiety disorder, who presented to [facility] emergency department on the day of admission secondary to complaints of cough, shortness of breath, and chest congestion. Evaluation at that time was consistent with bilateral MRSA pneumonia, exacerbation of COPD, hypertension, and esophageal stricture. Secondary to the above, the patient was admitted by Mosse Serra M.D. for further evaluation and treatment. For other history present illness, past medical history, family history, social history, review of systems, and admission physical examination please see the patient's history and physical examination and ER visit note in the patient's medical record. Subjective: The patient was noted to have increasing difficulty breathing and this a.m. He had decreasing O2 saturations despite increasing O2 requirement. The patient was essentially nonresponsive to all but noxious stimuli. Patient requests: None Physical Exam Vital Signs / I&Os Vital Signs Date Time Temp Pulse Resp B/P Pulse O2 O2 Flow FiO2 Ox Delivery Rate 08/17 0310 84 21 153/55 88 13.0 Non-Rebreather Mask 08/17 0248 13.0 08/17 0200 99.1 87 29 130/36 89 13.0 Non-Rebreather Mask 08/17 0147 1.0 08/17 0100 90 34 130/48 94 11.0 Non-Rebreather Mask 08/17 0000 85 28 117/47 93 11.0 Non-Rebreather Mask 08/16 2200 98.8 86 24 123/52 93 Mask 11.0 08/16 2100 90 21 114/45 94 Mask 11.0 08/16 2004 Mask 11.0 08/16 2000 84 20 125/52 94 Mask 11.0 08/16 1925 11.0 08/16 1900 91 19 111/57 95 Mask 11.0 08/16 1800 98.8 78 24 115/48 95 Mask 11.0 08/16 1714 86 22 117/50 95 Mask 11.0 08/16 1600 98.8 82 21 110/45 91 Mask 11.0 08/16 1512 117/49 04/17 1506 108 29 94 Mask 11.0 08/16 1439 11.0 08/16 1400 83 20 142/53 97 15.0 Non-Rebreather Mask 08/16 1300 95 20 155/65 97 15.0 Non-Rebreather Mask 08/16 1200 88 31 140/64 97 15.0 Non-Rebreather Mask 08/16 1100 98.8 87 31 150/65 97 15.0 Non-Rebreather Mask 08/16 1022 100 40 85 40 Non-Rebreather Mask 08/16 1000 86 35 160/69 87 15.0 Non-Rebreather Mask 08/16 0900 97 33 160/59 90 15.0 Non-Rebreather Mask 08/16 0800 15.0 Non-Rebreather Mask 08/16 0800 107 35 182/71 90 Bipap 13.0 08/16 0740 13.0 08/16 0700 98.8 97 30 109/50 96 Bipap 8.0 08/16 0600 98.8 102 25 134/56 92 Bipap 8.0 08/16 0500 90 25 118/55 92 Bipap 40 08/16 0400 99 33 138/68 86 Bipap 40 I&O 08/17 0000 08/16 1600 08/16 0800 Intake Total 134 1399 2333 Output Total 218 252 620 Balance -84 1147 1713 General Appearance Moderate distress, lethargic Lungs Decreased air movement bilaterally, rales bases, Cardiovascular Regular rate and rhythm, Normal S1 and S2 Abdomen Normal bowel sounds, Soft, No tenderness Extremities No cyanosis, No clubbing Neurological Cranial nerves intact, No lateralizing signs, lethargic, minimally responsive Psych/Mental Status Confused, minimally responsive, no verbal interaction LAB Results Laboratory Tests 08/17 08/17 08/17 08/17 0410 0410 0400 0321 Blood Gas Sample Site RR Total CO2 (24.0 - 30.0 mmol/L) Cancelled 31.5 ABG pH (7.35 - 7.45) Cancelled 7.31 ABG pCO2 at Pt Temp (35 - 45 mmHg) Cancelled 59.8 ABG pO2 at Pt Temp (60.0 - 80.0 mmHg) Cancelled 123.0 ABG HCO3 (20.0 - 26.0 mmol/L) Cancelled 29.7 ABG O2 Sat Calc/Kevin (95.1 - 100.0 %) Cancelled 98.9 ABG Base Excess (-6.0 - -6.0 mmol/L) Cancelled 3.0 ABG Reduced Hgb (%) Cancelled 1.1 ABG Carboxyhemoglobin (0.5 - 1.5 %) Cancelled 1.2 ABG Methemoglobin (0.4 - 1.5 %) Cancelled 0.5 Boogie Test Cancelled NO Other Total Hgb (14.0 - 18.0 g/dL) Cancelled 9.9 A-a O2 Gradient (7.0 - 14.0 mmHg) 414.4 Hgb O2 Saturation (95.0 - 100.0 %) Cancelled 97.2 Respiration Rate (/MIN) 16 Vent Mode SIMV FiO2 (20 - 101 %) Cancelled 85 Tidal Volume (cc) 500 PEEP (cmH2O) 5 Pressure Support (cmH2O) 5 Blood Gas Comments [id number] Chemistry Plasma Sodium (136 - 145 mmol/L) 143 Plasma Potassium (3.5 - 5.1 mmol/L) 5.8 Plasma Chloride (98 - 107 mmol/L) 108 CO2 (Enzymatic) (21 - 32 mmol/L) 28 BUN (7 - 18 mg/dL) 106 Creatinine (0.6 - 1.3 mg/dL) 2.5 Est GFR ( Amer) (mL/min) 31.78 Est GFR (Non-Af Amer) (mL/min) 26.22 Glucose (70 - 110 mg/dL) 337 Plasma Calcium (8.5 - 10.1 mg/dL) 7.0 Plasma Magnesium (1.8 - 2.4 mg/dL) 3.0 Hematology WBC (4.5 - 11.5 K/uL) 37.5 RBC (4.50 - 5.90 M/uL) 3.35 Hgb (13.5 - 17.5 gm/dL) 10.2 Hct (41.0 - 53.0 %) 32.8 MCV (80 - 100 fL) 98 MCH (26 - 34 pg) 30 RDW (11.6 - 14.8 %) 17.0 Neut % (Auto) (50 - 75 %) Cancelled 73 Lymph % (Auto) (25 - 40 %) Cancelled 0 [place] % (Auto) (3 - 14 %) Cancelled 0 Eos % (Auto) (0 - 4 %) 0 Baso % (Auto) (0 - 2 %) 0 Band Neutrophils % (0 - 8 %) Cancelled 27 Metamyelocytes % (0 - 1 %) 0 Myelocytes (0 - 1 %) 0 Other Cell Type 0 Plt Count, EDTA (150 - 400 K/uL) 311 Anisocytosis (manual) 2+ PUBS MCHC (31 - 37 g/dL) 31 08/17 0232 Blood Gas Sample Site RR Total CO2 (24.0 - 30.0 mmol/L) 32.5 ABG pH (7.35 - 7.45) 7.31 ABG pCO2 at Pt Temp (35 - 45 mmHg) 61.3 ABG pO2 at Pt Temp (60.0 - 80.0 mmHg) 57.9 ABG HCO3 (20.0 - 26.0 mmol/L) 30.6 ABG O2 Sat Calc/Kevin (95.1 - 100.0 %) 87.3 ABG Base Excess (-6.0 - -6.0 mmol/L) 3.8 ABG Reduced Hgb (%) 12.5 ABG Carboxyhemoglobin (0.5 - 1.5 %) 1.4 ABG Methemoglobin (0.4 - 1.5 %) 0.1 Boogie Test NO Other Total Hgb (14.0 - 18.0 g/dL) 10.4 A-a O2 Gradient (7.0 - 14.0 mmHg) 406.8 Hgb O2 Saturation (95.0 - 100.0 %) 86.0 O2 Liters/Min (0 - 20 L/MIN) 13 Vent Mode OXY FiO2 (20 - 101 %) 75 Blood Gas Comments 13L OXYMASK Microbiology Date/Time Procedure - Status Source Growth 08/17 434 Respiratory Culture - [facility] [place] 08/17 434 Culture and Gram Stain - [facility] [place] Assessment and Plan Problem List 1. Pneumonia of both lungs due to infectious organism Plan -Patient with findings of MRSA pneumonia -Continue Zyvox/cefepime -Repeat sputum for Gram stain C&S -Monitor -Prognosis poor-high likelihood patient will not survive this hospitalization -Follow up with Dr. Zane Patel in a.m. 2. Respiratory failure Plan -See below -Patient with progressive respiratory failure -Patient required intubation with mechanical ventilation -See orders 3. Hypoxia Plan -Patient with severe hypoxia associated with extensive bilateral MRSA pneumonia. -Submental oxygen as required transition to intubation with mechanical ventilation secondary to respiratory failure with progressive hypoxemia and hypercarbia -Patient required intubation as noted above -Vent orders entered -Prognosis poor -We'll discuss CODE STATUS with Dr. Serra who will discuss with family 4. Pneumothorax Status Acute Onset Date Unknown Plan -Stable -Follow-up chest x-ray shows no reaccumulation of pneumothorax. -Continue chest tube drainage -Follow up with general surgery Current status: Critical, unstable Anticipated discharge date: Unknown, critical status [facility]ticipated discharge placement: [facility] facility Patient care time: Time spent in chart review, patient interview, physical exam, CPOE, and care documentation: 45 minutes Visit to patient today: 1 Complexity of care: High Approximately 45 minutes was spent on one-to-one patient critical care. This time was spent in chart review, patient examination, CPOE entry, no generation. E&M Codes Critical Care: 30-74 min/[id number]
--- NOTE | 2016-08-17 07:05 | DIAGNOSTIC IMAGING REPORT ---
PROCEDURE: XR CHEST 1 VIEW INDICATION: CHEST TUBE, O2 SATS DROPPING TECHNIQUE: Portable AP view (0240 hours). COMPARISON: Compared to chest x-ray on 08/16/2016. FINDINGS: NG tube in left PIC line in satisfactory position. Left chest tube in position with minimal left apical pneumothorax. There has been no change in moderate to severe bilateral pneumonia. Moderate cardiomegaly with pulmonary vascular congestion. IMPRESSION: 1. Left chest tube in position with minimal apical pneumothorax. 2. No change in moderate to severe bilateral pneumonia. 3. Persistent moderate cardiomegaly with congestion. Consider superimposed congestive heart failure.
--- NOTE | 2016-08-17 07:09 | DIAGNOSTIC IMAGING REPORT ---
PROCEDURE: XR CHEST 1 VIEW INDICATION: ET tube placement. TECHNIQUE: Portable AP view (0330 hours). COMPARISON: Compared to chest x-ray earlier today (08/17/2016, 0240 hours). FINDINGS: ET tube has been placed in satisfactory position (3 cm above the gelacio. NG tube in left PIC line are in satisfactory position. Left chest tube in position. No evidence of pneumothorax. Mild to moderate worsening in severe bilateral pneumonia (developing changes most pronounced at the right lung base. Moderate cardiomegaly pulmonary vascular congestion. IMPRESSION: 1. Placement of ET tube in satisfactory position. 2. Left chest tube in position. No evidence of pneumothorax. 3. Mild to moderate worsening in severe bilateral pneumonia. 4. Moderate cardiomegaly and pulmonary vascular congestion suggest superimposed increased fluid status or congestive heart failure.
--- NOTE | 2016-08-17 09:23 | DIAGNOSTIC IMAGING REPORT ---
PROCEDURE: XR CHEST 1 VIEW INDICATION: s/p chest tube placement TECHNIQUE: Portable AP view 08:58 a.m. COMPARISON: Chest x-ray 08/17/2016 FINDINGS: Stable ET tube, NG tube, left PICC line and a left chest tube. Tiny left apical pneumothorax. Stable bilateral extensive pneumonia. Stable moderate cardiomegaly with mild pulmonary vascular congestion. Thorax is normal. IMPRESSION: 1. Stable ET tube, NG tube, left PICC line and left chest tube 2. Tiny left apical pneumothorax 3. Stable extensive bilateral pneumonia 4. Stable moderate cardiomegaly with mild pulmonary vascular congestion
--- NOTE | 2016-08-17 11:30 | Progress Note ---
Subjective General 84-year-old male bilateral pneumonia. Status post left chest tube thoracostomy. Patient's respiratory status deteriorated during the night and required reintubation. Repeat chest x-ray showed bilateral infiltrates/pneumonia his left lung however is reexpanded. Patient is minimally responsive on the ventilator. Physical Exam Vital Signs / I&Os Vital Signs Date Time Temp Pulse Resp B/P Pulse O2 O2 Flow FiO2 Ox Delivery Rate 08/17 1100 99.3 82 20 93/42 98 Ventilator 0.0 I&O 08/16 0800 08/16 1600 08/17 0000 Intake Total 2333 1399 134 Output Total 620 252 218 Balance 1713 1147 -84 General Appearance patient responding minimally only to loud verbal stimuli and motion. LAB Results Laboratory Tests 08/16 08/16 08/16 1620 1630 2155 Chemistry Plasma Sodium (136 - 145 mmol/L) 146 Plasma Potassium (3.5 - 5.1 mmol/L) 5.6 Plasma Chloride (98 - 107 mmol/L) 111 CO2 (Enzymatic) (21 - 32 mmol/L) 32 BUN (7 - 18 mg/dL) 91 Creatinine (0.6 - 1.3 mg/dL) 1.9 Est GFR ( Amer) (mL/min) 43.62 Est GFR (Non-Af Amer) (mL/min) 35.99 Glucose (70 - 110 mg/dL) 243 Plasma Calcium (8.5 - 10.1 mg/dL) 7.5 Total Bilirubin (0.0 - 1.0 mg/dL) 0.4 AST (15 - 37 U/L) 23 ALT (12 - 78 U/L) 40 Alkaline Phosphatase (46 - 116 U/L) 68 B-Natriuretic Peptide (5 - 100 pg/ml) 129 Total Protein (6.4 - 8.2 g/dL) 5.1 Albumin (3.3 - 5.0 g/dL) 1.4 Urines Urine Color YELLOW Urine Appearance SL CLOUDY Urine pH (5.0 - 8.0) 6.0 Ur Specific [place] (1.010 - 1.030) 1.015 Urine Protein (NEGATIVE) 1+ Urine Ketones (NEGATIVE) NEGATIVE Urine Blood (NEGATIVE) 3+ Urine Nitrite (NEGATIVE) NEGATIVE Urine Bilirubin (NEGATIVE) NEGATIVE Urine Urobilinogen (0.2 - 1.0 EU/dL) 0.2 Ur Leukocyte Esterase (NEGATIVE) NEGATIVE Urine RBC (0 - 1 rbc/hpf) 1-3 Urine WBC (0 - 1 wbc/hpf) 0-1 Ur Epithelial Cells (0 - 5 EPI/hpf) 1-3 Urine Bacteria (NONE SEEN) NONE SEEN Urine Glucose (NEGATIVE) NEGATIVE Urine Comment CULT NOT INDICATED 08/17 08/17 08/17 0232 0321 0400 Blood Gas Sample Site RR RR Total CO2 (24.0 - 30.0 mmol/L) 32.5 31.5 Cancelled ABG pH (7.35 - 7.45) 7.31 7.31 Cancelled ABG pCO2 at Pt Temp (35 - 45 mmHg) 61.3 59.8 Cancelled ABG pO2 at Pt Temp (60.0 - 80.0 mmHg) 57.9 123.0 Cancelled ABG HCO3 (20.0 - 26.0 mmol/L) 30.6 29.7 Cancelled ABG O2 Sat Calc/Kevin (95.1 - 100.0 %) 87.3 98.9 Cancelled ABG Base Excess (-6.0 - -6.0 mmol/L) 3.8 3.0 Cancelled ABG Reduced Hgb (%) 12.5 1.1 Cancelled ABG Carboxyhemoglobin (0.5 - 1.5 %) 1.4 1.2 Cancelled ABG Methemoglobin (0.4 - 1.5 %) 0.1 0.5 Cancelled Boogie Test NO NO Cancelled Other Total Hgb (14.0 - 18.0 g/dL) 10.4 9.9 Cancelled A-a O2 Gradient (7.0 - 14.0 mmHg) 406.8 414.4 Hgb O2 Saturation (95.0 - 100.0 %) 86.0 97.2 Cancelled Respiration Rate (/MIN) 16 O2 Liters/Min (0 - 20 L/MIN) 13 Vent Mode OXY SIMV FiO2 (20 - 101 %) 75 85 Cancelled Tidal Volume (cc) 500 PEEP (cmH2O) 5 Pressure Support (cmH2O) 5 Blood Gas Comments 13L OXYMASK [id number] 08/17 08/17 0410 0410 Chemistry Plasma Sodium (136 - 145 mmol/L) 143 Plasma Potassium (3.5 - 5.1 mmol/L) 5.8 Plasma Chloride (98 - 107 mmol/L) 108 CO2 (Enzymatic) (21 - 32 mmol/L) 28 BUN (7 - 18 mg/dL) 106 Creatinine (0.6 - 1.3 mg/dL) 2.5 Est GFR ( Amer) (mL/min) 31.78 Est GFR (Non-Af Amer) (mL/min) 26.22 Glucose (70 - 110 mg/dL) 337 Plasma Calcium (8.5 - 10.1 mg/dL) 7.0 Plasma Magnesium (1.8 - 2.4 mg/dL) 3.0 Hematology WBC (4.5 - 11.5 K/uL) 37.5 RBC (4.50 - 5.90 M/uL) 3.35 Hgb (13.5 - 17.5 gm/dL) 10.2 Hct (41.0 - 53.0 %) 32.8 MCV (80 - 100 fL) 98 MCH (26 - 34 pg) 30 RDW (11.6 - 14.8 %) 17.0 Neut % (Auto) (50 - 75 %) 73 Cancelled Lymph % (Auto) (25 - 40 %) 0 Cancelled [place] % (Auto) (3 - 14 %) 0 Cancelled Eos % (Auto) (0 - 4 %) 0 Baso % (Auto) (0 - 2 %) 0 Band Neutrophils % (0 - 8 %) 27 Cancelled Metamyelocytes % (0 - 1 %) 0 Myelocytes (0 - 1 %) 0 Other Cell Type 0 Plt Count, EDTA (150 - 400 K/uL) 311 Anisocytosis (manual) 2+ PUBS MCHC (31 - 37 g/dL) 31 Microbiology Date/Time Procedure - Status Source Growth 08/17 0435 Respiratory Culture - [facility] [place] 08/17 0435 Culture and Gram Stain - [facility] [place] 08/16 1620 Blood Culture - [facility] BLOOD Imaging IMAGING: No evidence of left pneumothorax. Bilateral infiltrate/pneumonia. Assessment and Plan Problem List 1. Pneumothorax Status Acute Onset Date Unknown Plan Left pneumothorax resolved. Procedure: With the patient in the supine position on the ventilator. Patient was administered 4 mg of morphine. The left chest tube was pulled. Sterile occlusive dressing applied. Patient tolerated procedure well. 2. Respiratory failure Plan Patient presently on the ventilator and being monitored by the hospitalist. 3. Pneumonia of both lungs due to infectious organism Plan Bilateral pneumonia unchanged. Presently being treated with antibiotics and followed by Dr. Serra and the hospitalist.
[2016-08-18] VITALS (25 sets, daily range): BP systolic 88–128; BP diastolic 43–62
--- NOTE | 2016-08-18 06:29 | Progress Note ---
Subjective General Note Date: August 18, 2016 Admission Date: August 08, 2016 Hospital Day: 11 PCP: Moses Serra M.D. Status: Inpatient Advanced Directive: FULL CODE Room: 302 Brief History: The patient is a 85-year-old white male with a significant past medical history of hypertension, COPD, osteoarthritis, lumbar disc disease, lumbar/thoracic compression fractures, BPH, gastroesophageal reflux, gout, generalized anxiety disorder, who presented to [facility] emergency department on the day of admission secondary to complaints of cough, shortness of breath, and chest congestion. Evaluation at that time was consistent with bilateral MRSA pneumonia, exacerbation of COPD, hypertension, and esophageal stricture. Secondary to the above, the patient was admitted by Moses Serra M.D. for further evaluation and treatment. For other history present illness, past medical history, family history, social history, review of systems, and admission physical examination please see the patient's history and physical examination and ER visit note in the patient's medical record. Subjective: The patient Patient intubated. Minimal response. Does not carry out commands. Patient requests: None Medications and Allergies Medications Current Medications Sig/Slalie Start time Last Medication Dose Route Stop Time Status Admin Enoxaparin Sodium 80 MG 1200 08/18 1200 CAN SC Cefepime HCl 2,000 MG Q24HR 08/18 09 CAN Dextrose/Water 50 ML IV Fluconazole/Sodium 100 ML QAM 08/18 0900 AC Chloride IV Insulin Human Lispro See Dose Q4HR 08/17 1000 AC 08/18 Insts (1) SC 0542 Famotidine/Sodium 50 ML DAILY 08/17 0900 AC 08/17 Chloride IV 0920 Insulin Glargine 35 UNITS QAM 08/17 0900 AC 08/17 SC 0920 Methylprednisolone 60 MG Q8H 08/17 0800 AC 08/18 Sodium Succinate IV 0001 Albuterol/Ipratropium 3 ML RTQ4H 08/17 0400 AC 08/18 [place] 0309 Lorazepam See Dose Q2H PRN 08/17 0345 AC Insts (2) IV Artificial Tears See Dose Q4H PRN 08/17 0330 AC Insts (3) OP Dextrose/Sodium 1,000 ML ASDIRECTED 08/17 0030 AC 08/18 Chloride IV 0318 Bisacodyl 10 MG QAM 08/16 0900 AC 08/16 [place] 0857 Heparin Sodium 500 UNITS TID PRN 08/15 1015 AC (Porcine) IV Diltiazem/Dextrose 125 ML ASDIRECTED 08/15 0915 AC 08/17 IV 1504 Acetaminophen See Dose Q4H PRN 08/14 1000 AC 08/14 Insts (4) PTUBE 1033 Metoprolol Tartrate 5 MG Q3H PRN 08/11 0030 AC 08/15 IV 0259 Artificial Tears See Dose PRN PRN 08/08 1615 AC 08/12 Insts (5) OP 0913 Albuterol Sulfate 2.5 MG RTQ3H PRN 08/08 1315 AC IN Ondansetron HCl 4 MG Q8H PRN 08/08 1115 AC IV Dose Instructions: (1)Insulin Human Lispro: CUSTOM DOSE: ACCUCHECK AND SLIDING SCALE >>To change sliding scale DISCONTINUE this order and enter a NEW order. Thanks< (2)Lorazepam: 0.5 - 1 MG (3)Artificial Tears: 1 DROP EACH EYE (4)Acetaminophen: 325 - 650 MG (5)Artificial Tears: APPLY TO EYES Allergies Coded Allergies: Celecoxib (From CELEBREX) (Severe, 08/09/16) Chocolate (Severe, 08/09/16) Omeprazole (From PRILOSEC) (Severe, 08/09/16) Oxycodone (Severe, 08/09/16) Pollen Extract (Severe, 08/09/16) [place] (Severe, 08/09/16) Clindamycin (Intermediate, DIZZINESS, SOB, DIARRHEA 08/09/16) Doxycycline (Intermediate, DIARRHEA, NAUSEA, VOMITTI 08/09/16) Iodinated Contrast Media (Intermediate, N/V 08/09/16) Sulfa Drugs (Intermediate, NAUSEA/UPSET STOMACH 08/09/16) Uncoded Allergies: GRASSES (Severe, 08/09/16) Physical Exam Vital Signs / I&Os Vital Signs Date Time Temp Pulse Resp B/P Pulse O2 O2 Flow FiO2 Ox Delivery Rate 08/18 0600 80 20 120/62 100 Ventilator 70 08/18 0512 0.0 08/18 0509 83 22 111/62 100 Ventilator 70 08/18 0400 82 23 96/45 100 Ventilator 70 08/18 0310 0.0 08/18 0300 99.1 80 23 92/45 100 Ventilator 70 08/18 0231 0.0 08/18 0200 88 21 106/48 100 Ventilator 70 08/18 0100 79 20 105/46 100 Ventilator 70 08/18 0010 98.8 77 22 108/45 100 Ventilator 70 04/ 2303 0.0 / 2300 81 17 98/42 100 Ventilator 70 04/18 2200 75 20 120/41 100 Ventilator 70 04/18 2159 85 16 100 Ventilator 70 04/18 2111 82 16 106/49 100 Ventilator 70 /4 0.0 08/17 2037 Ventilator 0.0 08/18 2011 81 16 95/40 99 Ventilator 70 04/18 1956 0.0 08/17 1903 83 16 104/44 100 Ventilator 70 04/18 1841 97.5 08/17 1805 85 16 118/50 99 Ventilator 70 04/ 1700 74 16 112/44 100 Ventilator 70 04/ 1606 75 16 104/47 95 Ventilator 70 18 1500 86 16 110/38 100 Ventilator 70 0418 1400 99.1 73 16 99/41 99 Ventilator 0.0 08/17 1300 79 16 110/45 99 Ventilator 0.0 08/17 1200 96 16 105/40 98 Ventilator 0.0 / 1100 99.3 82 20 93/42 98 Ventilator 0.0 / 1004 93 20 126/43 98 Ventilator 0.0 08/17 0900 88 20 116/52 98 Ventilator 0.0 08/17 0800 99.7 86 20 119/47 98 Ventilator 0.0 08/17 0757 Ventilator 70 08/17 0700 99.7 85 20 122/60 98 Ventilator 0.0 I&O 08/18 0000 08/17 1600 08/17 0800 Intake Total 2855 441 3306 Output Total 186 435 536 Balance 2669 6 2770 General Appearance Intubated, minimally responsive Lungs bilateral rales bases left greater than right Cardiovascular Normal S1 and S2, Irregular rhythm. Abdomen Hypoactive bowel sounds. Distended. Extremities No cyanosis, No clubbing, anasarca with diffuse edema. LAB Results Laboratory Tests 08/18 08/18 08/18 0410 0410 0400 Blood Gas Sample Site LR Total CO2 (24.0 - 30.0 mmol/L) 28.8 ABG pH (7.35 - 7.45) 7.42 ABG pCO2 at Pt Temp (35 - 45 mmHg) 42.4 ABG pO2 at Pt Temp (60.0 - 80.0 mmHg) 82.3 ABG HCO3 (20.0 - 26.0 mmol/L) 27.5 ABG O2 Sat Calc/Kevin (95.1 - 100.0 %) 97.1 ABG Base Excess (-6.0 - -6.0 mmol/L) 2.8 ABG Reduced Hgb (%) 2.9 ABG Carboxyhemoglobin (0.5 - 1.5 %) 1.2 ABG Methemoglobin (0.4 - 1.5 %) 0.2 Boogie Test YES Other Total Hgb (14.0 - 18.0 g/dL) 8.2 A-a O2 Gradient (7.0 - 14.0 mmHg) 369.1 Hgb O2 Saturation (95.0 - 100.0 %) 95.7 Respiration Rate (/MIN) 16 Vent Mode SIMV FiO2 (20 - 101 %) 70 Tidal Volume (cc) 500 PEEP (cmH2O) 5 Pressure Support (cmH2O) 5 Chemistry Plasma Sodium (136 - 145 mmol/L) 138 Plasma Potassium (3.5 - 5.1 mmol/L) 4.8 Plasma Chloride (98 - 107 mmol/L) 104 CO2 (Enzymatic) (21 - 32 mmol/L) 27 BUN (7 - 18 mg/dL) 122 Creatinine (0.6 - 1.3 mg/dL) 3.2 Est GFR ( Amer) (mL/min) 23.90 Est GFR (Non-Af Amer) (mL/min) 19.72 Glucose (70 - 110 mg/dL) 169 Plasma Calcium (8.5 - 10.1 mg/dL) 6.7 Plasma Magnesium (1.8 - 2.4 mg/dL) 2.8 Hematology WBC (4.5 - 11.5 K/uL) 28.7 RBC (4.50 - 5.90 M/uL) 2.64 Hgb (13.5 - 17.5 gm/dL) 8.2 Hct (41.0 - 53.0 %) 25.0 MCV (80 - 100 fL) 95 MCH (26 - 34 pg) 31 RDW (11.6 - 14.8 %) 15.6 Neut % (Auto) (50 - 75 %) Pending Pending Lymph % (Auto) (25 - 40 %) Pending Pending [place] % (Auto) (3 - 14 %) Pending Pending Band Neutrophils % (0 - 8 %) Pending Pending Plt Count, EDTA (150 - 400 K/uL) 237 PUBS MCHC (31 - 37 g/dL) 33 Imaging Chest X-Ray IMPRESSION: 1. Interval removal of left-sided chest tube with tiny residual apical pneumothorax, unchanged. 2. Unchanged bilateral pneumonia. 3. Stable cardiomegaly with persistent mild central venous congestion. Dictated by: ELSA MONTES MD D: TANISHA;08/18/16 0747 Assessment and Plan Problem List 1. MRSA pneumonia Status Acute Onset Date Unknown Plan -Patient with findings of MRSA pneumonia -Continue Zyvox -Monitor -Prognosis poor with severe pneumonia in setting of renal insufficiency. -Family conference undertaken today regarding patient's status. Patient's family has requested the patient be placed on a NO CODE STATUS. 2. Pneumothorax Status Acute Onset Date Unknown Plan -Improved, tiny apical pneumothorax present -Chest tube removed -Monitor -Repeat chest x-ray in a.m. 3. Respiratory failure Plan -Patient with findings of respiratory failure in setting of severe MRSA pneumonia, CHF -Patient intubated with mechanical ventilation -O2 saturation adequate -Arterial blood gas shows normal CO2/02 -Continue present supportive therapy -Patient not candidate for extubation at this time 4. Azotemia Status Acute Onset Date Unknown Plan -Patient with severe azotemia -Unresponsive to vigorous IV fluid support -Patient with severe edema -Oliguria unresponsive to fluid/diuretics -Overall prognosis poor. -Monitor 5. Anemia Status Acute Onset Date Unknown Plan -Patient with findings of mild anemia -H&H 8.2/25.0 -Monitor -Chek serum iron studies, B12, folate Current status: Critical, unstable Anticipated discharge date: Unknown Anticipated discharge placement: senior living facility patient's 5 hospitalization Patient care time: Time spent in chart review, patient interview, physical exam, CPOE, and care documentation: 35 minutes Visit to patient today: 3 Complexity of care: High E&M Codes Rounding: Inpt-High/[id number]
--- NOTE | 2016-08-18 07:47 | DIAGNOSTIC IMAGING REPORT ---
PROCEDURE: XR CHEST 1 VIEW INDICATION: On vent, check pneumonia and check pneumothorax L TECHNIQUE: Single view chest. 05:55 hours COMPARISON: 08/17/2016 FINDINGS: Left-sided PICC line, endotracheal tube, and nasogastric tubes are present. Interval removal of left-sided chest tube. Tiny residual left apical pneumothorax. Moderate cardiomegaly. Mild central venous congestion, stable. Bilateral alveolar opacities are unchanged. Dense left base opacity, likely atelectasis and small effusion. IMPRESSION: 1. Interval removal of left-sided chest tube with tiny residual apical pneumothorax, unchanged. 2. Unchanged bilateral pneumonia. 3. Stable cardiomegaly with persistent mild central venous congestion.
[2016-08-19] VITALS (10 sets, daily range): BP systolic 98–127; BP diastolic 39–57
--- NOTE | 2016-08-19 07:01 | DIAGNOSTIC IMAGING REPORT ---
PROCEDURE: XR CHEST 1 VIEW INDICATION: recheck pneumonia--on ventilator. TECHNIQUE: Portable AP view 05:15 a.m. COMPARISON: Chest x-ray 08/18/2016 FINDINGS: ET tube, NG tube and right PICC line are unchanged . Increasing mild left pleural effusion and diffuse left lung infiltrates. No change in the right upper and right lower lobe infiltrate. Stable moderate cardiomegaly. Bony thorax is unremarkable. IMPRESSION: 1. Progression of left pleural effusion and left lung pneumonia 2. Stable right upper and right lower lobe pneumonia 3. Stable moderate cardiomegaly 4. Results discussed with Dr. Ruelas
--- NOTE | 2016-08-19 18:39 | DIAGNOSTIC IMAGING REPORT ---
REFERRING PHYSICIAN/PROVIDER: Moses Serra MD CONSULTING [employer] R[employer]FER: Herbie Garcia MD PROCEDURE: M-mode 2D echocardiography with spectral and color flow Doppler TECHNICAL QUALITY: Fair INDICATION: CHF RHYTHM DURING PROCEDURE: Atrial fibrillation INTERPRETATIONS: LEFT VENTRICLE: The left ventricle was normal in size and systolic function. The ejection fraction was estimated at 70%. RIGHT VENTRICLE: The right ventricle was not well visualized. ATRIA: There was mild left atrial enlargement noted. MITRAL VALVE: The mitral valve is not well visualized but there appeared to be only trace mitral regurgitation noted. AORTIC VALVE: The aortic valve is not well visualized. TRICUSPID VALVE: There was trace tricuspid regurgitation noted. The estimated right ventricular systolic pressure was 16 mmHg. PULMONIC VALVE: The pulmonic valve was not well visualized. GREAT VESSELS: The great vessels appear normal. PERICARDIUM: There was a trivial (physiologic) pericardial effusion noted. IMPRESSION: 1. Normal right ventricular size and systolic function 2. Mild left atrial enlargement 3. No significant valvular abnormalities 4. Normal right ventricular systolic pressure 5. Trivial (physiologic) pericardial effusion
--- NOTE | 2016-08-19 18:39 | DIAGNOSTIC IMAGING REPORT ---
REFERRING PHYSICIAN/PROVIDER: Moses Serra MD CONSULTING [employer] PROGRAMMER: Herbie Garcia MD PROCEDURE: M-mode 2D echocardiography with spectral and color flow Doppler TECHNICAL QUALITY: Fair INDICATION: CHF RHYTHM DURING PROCEDURE: Atrial fibrillation INTERPRETATIONS: LEFT VENTRICLE: The left ventricle was normal in size and systolic function. The ejection fraction was estimated at 70%. RIGHT VENTRICLE: The right ventricle was not well visualized. ATRIA: There was mild left atrial enlargement noted. MITRAL VALVE: The mitral valve is not well visualized but there appeared to be only trace mitral regurgitation noted. AORTIC VALVE: The aortic valve is not well visualized. TRICUSPID VALVE: There was trace tricuspid regurgitation noted. The estimated right ventricular systolic pressure was 16 mmHg. PULMONIC VALVE: The pulmonic valve was not well visualized. GREAT VESSELS: The great vessels appear normal. PERICARDIUM: There was a trivial (physiologic) pericardial effusion noted. IMPRESSION: 1. Normal right ventricular size and systolic function 2. Mild left atrial enlargement 3. No significant valvular abnormalities 4. Normal right ventricular systolic pressure 5. Trivial (physiologic) pericardial effusion
--- NOTE | 2016-08-20 07:18 | DIAGNOSTIC IMAGING REPORT ---
PROCEDURE: XR CHEST 1 VIEW INDICATION: s/p chest tube placement TECHNIQUE: Portable AP view 06:03 a.m. COMPARISON: Chest x-ray 08/19/2016. FINDINGS: ET and NG tubes have been removed. Stable left PICC line. Mild improvement of the right upper lobe, right basilar and diffuse left lung infiltrates. No change in the loculated left pleural effusion. Stable moderate cardiomegaly. Thorax is normal. IMPRESSION: 1. ET and NG tubes removed 2. Stable left PICC line 3. Mildly improved extensive bilateral pneumonia with no change in the loculated left pleural effusion 4. Cardiomegaly
[2016-08-20 07:43] VITALS: BP 131/61
[2016-08-20 14:33] VITALS: BP 121/52
[2016-08-20 23:05] VITALS: BP 112/94
--- NOTE | 2016-08-21 13:10 | EXPIRATION SUMMARY ---
ADMITTED: 08/08/2016 : 08/21/2016 ADMITTING DIAGNOSIS: 1. Acute pneumonia 2. Underlying chronic obstructive pulmonary disease 3. Respiratory failure FINAL DIAGNOSES: 1. Progressive methicillin-resistant Staphylococcus aureus pneumonia 2. Atrial fibrillation. 3. 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 4. Underlying chronic obstructive pulmonary disease. 5. Left pneumothorax. 6. Progressive renal failure. 7. Hyperglycemia secondary to corticosteroids. CAUSE OF : Cause of is progressive methicillin resistant Staphylococcus aureus pneumonia leading to other major organ system dysfunction. PROCEDURES PERFORMED: The patient was intubated 08/08/2016 and managed on the ventilator 08/08/2016 through 08/13/2016. He was reintubated on 08/17/2016 and managed on the ventilator 08/17/2016 through 08/19 2016. Other procedures included placement of a chest tube 08/16/[address] Worrell. BRIEF HISTORY: Please see the dictated history and physical exam for details concerning admission. HOSPITAL COURSE: The patient is an 85-year-old white male who had had recent problems with difficulty swallowing and a viral respiratory infection, who became suddenly febrile and profoundly short of breath early in the morning on the day of his admission. He presented to the emergency department and was found to have bilateral infiltrates on chest x-ray and very low oxygen saturations. He was felt to have a significant pneumonia. He was significantly tachycardic. He was admitted to the intensive care unit and initially treated with oxygen administered by mask and with cefepime and levofloxacin as initial antibiotics. He had progressive worsening of his respiration as the day progressed and required intubation in the late afternoon of 08/08/2016. He was placed on a ventilator. He received Solu-Medrol intravenously to help with underlying COPD issues and to help with inflammation triggered by the pneumonia. He had an initial BUN and creatinine showing 32 and 1.7 respectively. He was hydrated and had this improve to a creatinine of 1.3 on 08/10/2016. His BUN increased to 47. He had a lactic acid level that was high at 3.0 and had a very high procalcitonin at 30.8. He seemed to stabilize and seemed to be improving some. His blood culture grew out gram-positive cocci and, once this was noted, he was started on vancomycin in place of the levofloxacin. The culture eventually grew out methicillin-resistant Staphylococcus aureus. He was maintained on a combination of cefepime and vancomycin and seemed to be doing a little bit better. The pharmacist suggested switching to linezolid to help with the pneumonia as this was felt to be a little bit better than vancomycin. This was done. The patient seemed to be slowly improving with this. His infiltrates decreased some. He did develop tachycardia and this was found to be atrial fibrillation. He was placed on a diltiazem infusion to control heart rate and this was continued throughout most of the remainder of his hospitalization. He progressed to the point where he was able to be extubated on 08/15/2016. He initially did well, but after about 24 hours seemed to be tiring and seemed to show progressive difficulties with lower oxygen saturations and increased CO2 levels. He was placed on BiPAP on 08/15 2016 and with this improved. During this time, his BUN and creatinine started to rise and continued to rise. He had his fluids manipulated and diuretics manipulated to try to increase fluid and urine output and improve mild pulmonary congestion seen on chest x-rays. This did not seem to result in very great response. While on the ventilator, the patient was being managed well with input from the hospice team, both Dr. Patel and Dr. Main. Chest x-ray done on 08/16/2016 showed development of a large left-sided pneumothorax. Dr. Worrell was contacted and, as the pneumothorax did not resolve when the patient was placed on 100% oxygen for 2-3 hours, Dr. Worrell felt it was appropriate to put in a chest tube. This was done midday on 08/16/2016. With the chest tube in place. The patient continued to have deterioration in his breathing and needed to be reintubated early in the morning on 08/17/2016 and placed back on the ventilator. At this point, the patient's overall condition seemed to markedly decline. He started showing progressive increase in BUN and creatinine. BNP check and echocardiogram check showed that heart function is really okay. The cause of the progressive renal insufficiency was not obvious. He continued to have a very high white blood cell count. He was quite minimally responsive. Over the next 48 hours, he did not improve much at all and had increased problems with pleural effusion on the left. He showed evidence of increasing infiltrates on the left and somewhat on the right. He continued to be in atrial fibrillation. Dr. Main and I both discussed the situation with his and family and advised that it looked like the patient was steadily deteriorating, particularly with the respiratory status and with the kidney status. The patient had wanted to be intubated if it looked like he would survive. He did not want to be maintained long-term on a ventilator if he felt there was little chance of improvement. Both Dr. Main and I agreed that his situation was progressing to the point where steady decline and demise seemed inevitable. We presented this to the patient and his family and recommended that we simply opt for comfort care. The patient's and his family were in agreement with this. The patient was extubated on 08/19/2016 and received comfort care thereafter. Antibiotics were discontinued and Cardizem drip was discontinued. The patient had progressive respiratory decline and peacefully around 3:30 a.m. on 08/21/2016. Cause of is progressive methicillin resistant Staphylococcus aureus pneumonia leading to other major organ system dysfunction.
== END 2016-08-21 03:30 | disposition expired | DRG 871 ==
LOC: ED SRH 09:22 → TRANS SRH 11:04 → CC SRH 12:15
PROVIDERS: ADMIT Student in an Organized Health Care Education/Training Program
PROC: 5A1945Z Respiratory Ventilation, 24-96 Consecutive Hours (ICD-10-PCS; principal; 2016-08-08)
PROC: 0BH17EZ Insertion of Endotracheal Airway into Trachea, Via Natural or Artificial Opening (ICD-10-PCS; 2016-08-08)
PROC: 5A09357 Assistance with Respiratory Ventilation, Less than 24 Consecutive Hours, Continuous Positive Airway Pressure (ICD-10-PCS; 2016-08-08)
PROC: 03HY32Z Insertion of Monitoring Device into Upper Artery, Percutaneous Approach (ICD-10-PCS; 2016-08-11)
PROC: 02HV33Z Insertion of Infusion Device into Superior Vena Cava, Percutaneous Approach (ICD-10-PCS; 2016-08-11)
PROC: 0W9B00Z Drainage of Left Pleural Cavity with Drainage Device, Open Approach (ICD-10-PCS; 2016-08-16)
PROC: 5A1945Z Respiratory Ventilation, 24-96 Consecutive Hours (ICD-10-PCS; 2016-08-17)
PROC: 0BH17EZ Insertion of Endotracheal Airway into Trachea, Via Natural or Artificial Opening (ICD-10-PCS; 2016-08-17)
PROC: 0HQ5XZZ Repair Chest Skin, External Approach (ICD-10-PCS; 2016-08-17)
DX: A41.02 Sepsis due to Methicillin resistant Staphylococcus aureus (principal); J15.212 Pneumonia due to Methicillin resistant Staphylococcus aureus; I13.0 Hypertensive heart and chronic kidney disease with heart failure and stage 1 through stage 4 chronic kidney disease, or unspecified chronic kidney disease; I50.33 Acute on chronic diastolic (congestive) heart failure; N18.9 Chronic kidney disease, unspecified; J96.01 Acute respiratory failure with hypoxia; J44.0 Chronic obstructive pulmonary disease with (acute) lower respiratory infection; L76.22 Postprocedural hemorrhage of skin and subcutaneous tissue following other procedure; E87.1 Hypo-osmolality and hyponatremia; N17.9 Acute kidney failure, unspecified; J93.83 Other pneumothorax; D64.9 Anemia, unspecified; R73.9 Hyperglycemia, unspecified; T38.0X5A Adverse effect of glucocorticoids and synthetic analogues, initial encounter
CPT/HCPCS: 20011; 81240; 81803; 82965; 83204; 83455; 83463; 83475; 83476; 83738; 83741; 83754; 83921; 90004; 90047; 90065; 90070; 90074; 90098; 90100; 90127; 90309; 90616; 91320; 91643; 91672; 92031; 92132; 92610; 92710; 92720; 93004; 94060; 95059